=== PATIENT | female | born 1975 | race Two or more races ===

== ENCOUNTER → 2022-01-03 | Outpatient (CLI) | payer OTHER ==
--- NOTE | 2022-01-03 13:39 | RAD ---
AP and lateral views, lumbar spine. 01/03/2022 INDICATION: Low back pain. COMPARISON STUDY: None FINDINGS: No evidence of acute fracture or alignment abnormality is identified. Anterior laterally at the second and third, and third and fourth lumbar vertebra there is a bridging uncovertebral osteoph yte osteophytes. Disc spaces are relatively preserved. Vertebral body heights are maintained. No evid ence of spondylolysis or significant spondylolisthesis is seen. No acute soft tissue changes are iden tified. IMPRESSION: Mild degenerative changes of lumbar spine without evidence of acute osseous of normality Electronically signed by: Terry Masterson MD (01/03/2022 1:37 PM) [id number]
== END ==
LOC: RAD 12:19
PROVIDERS: ATTEND Family Medicine
DX: Z02.71 Encounter for disability determination (principal); M47.816 Spondylosis without myelopathy or radiculopathy, lumbar region; M25.78 Osteophyte, vertebrae
CPT/HCPCS: 72100